=== PATIENT | female | born 1955 | race Caucasian/White ===

== ENCOUNTER 2019-11-20 08:24 | Day surgery (SDC) | payer OTHER, MEDICARE ==
[2019-11-13 11:44] VITALS: BMI 37.0
--- NOTE | 2019-11-20 08:00 | HP ---
History & Physical Update - History History: No Change - Physical Physical: No Change - Assessment Assessment: No Change - Plan Plan: No Change
[2019-11-20] MEDS ORDERED: BUPIVACAINE HCL/PF 0.5% (5 MG/ML) 30 ML VIAL IJ ONE (09:32)
[2019-11-20] MEDS ORDERED: MIDAZOLAM HCL 2 MG/2 ML SINGLE DOSE VIAL ONE ×3 (09:32→13:16)
[2019-11-20] MEDS ORDERED: DEXAMETHASONE SOD PHOSPHATE/PF 10 MG/ML SDV ONE (10:43)
[2019-11-20] MEDS ORDERED: GUM MASTIC/STORAX/MSAL/ALCOHOL 1 DRP DROPSBTL MC ONE (12:42)
[2019-11-20] MEDS ORDERED: methylPREDNISolone ACET (DEPO) 40 MG/1 ML VIAL ONE (12:42)
[2019-11-20] MEDS ORDERED: LIDOCAINE 1%/EPI 1:100000 (20 ML MULTI DOSE VIAL) ONE (12:42)
[2019-11-20] MEDS ORDERED: BUPIVACAINE HCL/PF 0.5% (5MG/ML) 10 ML VIAL ONE (12:53)
[2019-11-20] MEDS ORDERED: ONDANSETRON 4 MG/2 ML VIAL ONE ×2 (13:21→16:13)
[2019-11-20] MEDS ORDERED: ceFAZolin SODIUM 1 GM VIAL ONE (13:21)
[2019-11-20] MEDS ORDERED: LIDOCAINE 1%/EPI 1:100000 (20 ML MULTI DOSE VIAL) INF ONE (13:24)
[2019-11-20] MEDS ORDERED: methylPREDNISolone ACET (DEPO) 40 MG/1 ML VIAL IM ONE (14:03)
[2019-11-20] MEDS ORDERED: methylPREDNISolone NA SUCC 40 MG/1 ML VIAL IM ONE (14:03)
--- NOTE | 2019-11-20 15:00 | OP ---
Operative Note - Note: Operative Date: 11/20/19 Pre-Operative Diagnosis: L4-S1 stenosis w/ LE radiculopathy (L>R) Operation: L4-S1 laminectomy (bilateral) Post-Operative Diagnosis: Same as Pre-op Surgeon: Mani Cowan Preforming Machine Operator: Lincoln Shaikh Anesthesiologist/MEDICAL DOCTOR: Milad Gonzalez Anesthesia: Spinal Estimated Blood Loss (mls): 30 Fluid Volume Replaced (mls): 800 Operative Report Dictated: Yes
--- NOTE | 2019-11-20 15:01 | SURG ---
Surgery Extruder Operator Horizontal Note Extruder Operator Horizontal: Lincoln Shaikh PA-C Date of Service: 11/20/19 Diagnosis: L4-S1 spinal stenosis w/ LE radiculopathy Procedure: L4-S1 laminectomy (bilateral) I was present for the entirety of the operative procedure. For further detail, please refer to operative report. Visit type - Case Type Case Type: Scheduled - New patient This patient is new to me today: Yes Date on this admission: 11/20/19
--- NOTE | 2019-11-20 15:24 | OP ---
DATE OF OPERATION: 11/20/2019 PREOPERATIVE DIAGNOSIS: Spinal stenosis. POSTOPERATIVE DIAGNOSIS: Spinal stenosis. PROCEDURE PERFORMED: Laminectomy, L4-L5, L5-S1. SURGEON: Mani Cowan MD TRIAGE ASSISTANT: GOYO Torres ESTIMATED BLOOD LOSS: 50 mL. INTRAVENOUS FLUIDS: Per Anesthesia. ANESTHESIA: Spinal/TLIP. COMPLICATIONS: There were none. DISPOSITION: Patient brought to the PACU in stable condition. INDICATIONS FOR SURGERY: Patient is a 64-year-old female who has been suffering from pain from her back down the leg. X-rays and MRI were completed which noted that she had spinal stenosis from L4 down to S1. She had gone through an exhaustive course of treatment for this, which included medications, physical therapy, as well as injections. Unfortunately, pain continued to persist, despite all this. At this point, risks, benefits, and alternatives were discussed and the patient consented to surgery. OPERATIVE NOTE: The patient was brought to the operating room by the Anesthesia staff. After appropriate patient identification was performed, spinal anesthesia was given, appropriate anesthetic lines were given, patient was able to position herself prone onto the OR table with all areas of bony prominences well padded at this time. Two needles were placed into the back to nikolai off the L4 to S1 segments. X-rays taken to confirm this was correct. Needle was removed. Injected with lidocaine with epinephrine. Her back was prepped and draped in a sterile manner. timeout was completed. An incision was made from the top of L4 down to the bottom of S1. Dissection was carried down to the fascia. The fascia was then opened up at this time and retractors were placed in. A spinal needle was placed onto the L4 lamina to nikolai off the L4-5 level. X-rays taken to confirm this was correct. Needle was removed and the interspinous ligament at L4-5 and L5-S1 was removed. The spinous process of L5 was removed. The lamina at L5 was removed. The flavum was removed. A complete decompression was performed, such that by the end of the procedure the L5 and S1 nerve roots appeared to be well decompressed. All bleeding was well controlled at this time. Steroid was placed over the nerve root, Floseal was placed over that. The fascia was closed with a No. 1 Vicryl suture, subcutaneous tissues were closed with 2-0 Vicryl suture, and skin was closed with 3-0 Monocryl suture. Dermabond was applied. Steri-Strips were applied. A sterile dressing was applied. Patient placed supine on OR bed. Brought to the PACU in stable condition. MANI COWAN M.D. [id number]
[2019-11-20] MEDS ORDERED: ONDANSETRON 4 MG/2 ML VIAL IVPUSH PRN (15:35)
[2019-11-20] MEDS ORDERED: LACTATED RINGERS SOLUTION 1,000 ML IV SCH (15:45)
[2019-11-20] MEDS ORDERED: oxyCODONE HCL 5 MG TABLET PO PRN (16:05)
[2019-11-20] MEDS ORDERED: oxyCODONE HCL 5 MG TABLET ONE (17:24)
[2019-11-20 17:37] VITALS: TEMP 97.9
[2019-11-20 19:25] VITALS: BP 150/82; PULSE 82
== END 2019-11-20 19:15 | disposition home or self-care (01) ==
LOC: FASU 08:24
PROVIDERS: ATTEND Orthopaedic Surgery Orthopaedic Surgery of the Spine
PROC: 01NB0ZZ Release Lumbar Nerve, Open Approach (ICD-10-PCS; principal; 2019-11-20 13:35)
DX: M48.061 Spinal stenosis, lumbar region without neurogenic claudication (principal); M48.07 Spinal stenosis, lumbosacral region
CPT/HCPCS: 72100-TC-FY; 82962; 94760